=== PATIENT | female | born 1960 | race Caucasian/White ===

== ENCOUNTER 2017-12-07 19:48 | Emergency (ER) | payer MEDICAID ==
[2017-12-07 20:05] VITALS: PULSE 70; O2SAT 98
[2017-12-07 21:55] LABS: BASO % 0.7 % (0.0-2.0); EOS # 0.1 K/uL (0.0-0.7); EOS % 1.3 % (0.0-4.0); HEMOGLOBIN 11.8 g/dL (11.0-16.0); LYMPH # 2.5 K/uL (1.0-4.3); MEAN CORPUSCULAR HEMOGLOBIN 28.1 pg (27.0-31.0); MEAN CORPUSCULAR HGB CONC 33.4 g/dL (33.0-37.0); MEAN PLATELET VOLUME 9.9 fL (7.2-11.7); MONO # 0.5 K/uL (0.0-0.8); MONO % 7.6 % (0.0-10.0); NEUT # 2.9 K/uL (1.8-7.0); NEUT % 48.4 % (50.0-75.0); NRBC % 0.1 % (0.0-2.0); RBC 4.2 Mil/uL (3.80-5.20)
[2017-12-07 22:08] LABS: ALB/GLOB RATIO 1.2 (1.0-2.1); ALBUMIN 3.9 g/dL (3.5-5.0); ALT/SGPT 30 U/L (9-52); AST/SGOT 41 U/L (14-36); BLOOD UREA NITROGEN 14 mg/dL (7-17); CALCIUM 8.6 mg/dl (8.6-10.4); GFR AFRICAN-AMERICAN > 60; GFR NON-AFRICAN AMERICAN 57
[2017-12-07 22:19] LABS: B-TYPE NATRIURETIC PEPTIDE 217 pg/mL (0-900)
[2017-12-07] MEDS ORDERED: Alum-Mag Hydrox-Simethicone Susp (30 mL) PO STA (22:26)
[2017-12-07] MEDS ORDERED: Alum-Mag Hydrox-Simethicone Susp (30 mL) ONE (22:45)
--- NOTE | 2017-12-07 23:24 | C.PDOC ---
Time Seen by Provider: 12/07/17 20:54 Chief Complaint (Nursing): GI Problem History Per: Patient, Family Onset/Duration Of Symptoms: Days (1) Current Symptoms Are (Timing): Still Present Severity: Moderate Radiation Of Pain To:: Chest Quality Of Discomfort: Burning Associated Symptoms: Nausea, Vomiting Alleviating Factors: None Additional History Per: Prior Records Past Medical History Reviewed: Historical Data, Nursing Documentation, Vital Signs Vital Signs: Last Vital Signs Temp 98.0 F 12/07/17 19:56 Pulse 70 12/07/17 19:56 Resp 11 L 12/07/17 19:56 BP 150/94 H 12/07/17 19:56 Pulse Ox 98 12/07/17 19:56 - Medical History PMH: Arthritis, Asthma, Gastritis, Hypercholesterolemia Surgical History: Appendectomy Family History: States: Unknown Family Hx - Social History Hx Tobacco Use: No Hx Alcohol Use: No Hx Substance Use: No - Immunization History Hx Tetanus Toxoid Vaccination: No Hx Influenza Vaccination: Yes Hx Pneumococcal Vaccination: No Review Of Systems Except As Marked, All Systems Reviewed And Found Negative. Constitutional: Negative for: Fever Respiratory: Negative for: Hemoptysis Gastrointestinal: Positive for: Nausea, Vomiting. Negative for: Abdominal Pain , Diarrhea, Constipation, Melena, Hematochezia, Hematemesis Genitourinary: Negative for: Dysuria Musculoskeletal: Negative for: Neck Pain, Back Pain Skin: Negative for: Rash Neurological: Negative for: Weakness, Numbness Physical Exam - Physical Exam Appears: Non-toxic, No Acute Distress Skin: Normal Color, Warm, Dry, No Rash Head: Atraumatic, Normacephalic Eye(s): bilateral: Normal Inspection, PERRL, EOMI Neck: Normal ROM, Supple Cardiovascular: Rhythm Regular Respiratory: Normal Breath Sounds, No Accessory Muscle Use Gastrointestinal/Abdominal: Soft, No Tenderness, No Distention Back: No CVA Tenderness Extremity: Normal ROM, No Pedal Edema, No Calf Tenderness Neurological/Psych: Oriented x3, Normal Motor, Normal Sensation ED Course And Treatment - Laboratory Results Result Diagrams: 12/07/17 21:49 12/07/17 21:49 Lab Interpretation: No Acute Changes ECG: Interpreted By Me, Viewed By Me ECG Rhythm: Sinus Rhythm ECG Interpretation: No Acute Changes Rate From EC O2 Sat by Pulse Oximetry: 98 Pulse Ox Interpretation: Normal - Radiology CXR: Interpreted by Me, Viewed By Me CXR Interpretation: Yes: No Acute Disease Progress - Interventions Interventions:: Observation, Intravenous fluid - Medications Administered Oral: Antacid, Antiemetic Intravenous: Antiemetic, H-2 adama - Data Reviewed Data Reviewed: Lab, Diagnostic imaging, EKG, Old records - Patient Status Patient status: Mostly improved - Continuity of Care Discussed patient case with:: Patient, Family-HIPPA compliant, ED Nurse - Patient Plan Patient Plan: Discharge, F/U with PCP Disposition Counseled Patient/Family Regarding: Studies Performed, Diagnosis, Need For Followup, Rx Given - Disposition Referrals: Eliazar Whitfield MD [Medical Doctor] - Disposition: HOME/ ROUTINE Disposition Time: 23:25 Condition: IMPROVED Additional Instructions: Follow up with your doctor within 1 week for further evaluation and treatment. Return to the ER if you develop fever, abdominal pain, shortness of breath, worsening of symptoms or if you have an other concerns. Prescriptions: Famotidine [Pepcid] 20 mg PO BID #30 tab Metoclopramide [Reglan] 1 tab PO TID PRN #15 tab PRN Reason: Nausea/Vomiting Instructions: Acute Nausea and Vomiting (ED) Forms: [employer] (Irish) Print Language: SAMMARINESE - Clinical Impression Clinical Impression: Nausea & vomiting, Chest discomfort
[2017-12-07 23:34] VITALS: BP 150/92; RESP 18; TEMP 97.8
--- NOTE | 2017-12-08 16:08 | RAD ---
HISTORY: Vomiting. Chest discomfort. COMPARISON: 06/07/2016 FINDINGS: LUNGS: No active pulmonary disease. PLEURA: No significant pleural effusion identified, no pneumothorax apparent. CARDIOVASCULAR: Normal. OSSEOUS STRUCTURES: No significant abnormalities. VISUALIZED UPPER ABDOMEN: Normal. OTHER FINDINGS: None. IMPRESSION: No active disease.
== END 2017-12-07 23:36 | disposition home or self-care (01) ==
LOC: C.ER 19:48
DX: R11.2 Nausea with vomiting, unspecified (principal); R07.89 Other chest pain
CPT/HCPCS: 71045; 80053; 83880; 84484; 85025; 87804; 96374; 96375; 99283; J2405

== ENCOUNTER 2018-12-22 16:27 | Observation (INO) | payer MEDICAID ==
[2018-12-22] MEDS ORDERED: Iodixanol 320 MG/ML 100 ML BOTTLE IV ONE (16:51)
[2018-12-22] MEDS ORDERED: Sodium Chloride 0.9% 500 ML IV STA (17:40)
--- NOTE | 2018-12-22 17:43 | C.PDOC ---
History Of Present Illness 58 year old female with PMHx of HTN, HLD, and arthritis presents to the ED complaining of diffused tingling sensation to feet, hands and back, headache, and chest pain. Patient reports her mother is also in the ED with code stroke. D enies any other complaints. Denies any SOB, fever, chills, n/v/d, or any other complaints. Time Seen by Provider: 12/22/18 16:34 Chief Complaint (Nursing): Anxiety History Per: Patient History/Exam Limitations: no limitations Onset/Duration Of Symptoms: Hrs Current Symptoms Are (Timing): Still Present Suicide/Self Injury Attempted (Context): None Modifying Factor(s): None Past Medical History Reviewed: Historical Data, Nursing Documentation, Vital Signs Vital Signs: Last Vital Signs Temp 98.7 F 12/22/18 16:30 Pulse 92 H 12/22/18 16:30 Resp 28 H 12/22/18 16:30 BP 131/61 12/22/18 16:30 Pulse Ox 100 12/22/18 16:30 - Medical History PMH: Arthritis, Asthma, Gastritis, Hypercholesterolemia Surgical History: Appendectomy Family History: States: Stroke (Mother at 89 y/o ) - Social History Hx Tobacco Use: No Hx Alcohol Use: No Hx Substance Use: No - Immunization History Hx Tetanus Toxoid Vaccination: No Hx Influenza Vaccination: Yes Hx Pneumococcal Vaccination: No Review Of Systems Except As Marked, All Systems Reviewed And Found Negative. Constitutional: Negative for: Fever, Chills Cardiovascular: Positive for: Chest Pain Respiratory: Negative for: Shortness of Breath, SOB with Excertion, Wheezing Gastrointestinal: Negative for: Nausea, Vomiting, Diarrhea Neurological: Positive for: Headache, Other (diffuse tingling sensation ) Physical Exam - Physical Exam Appears: Non-toxic, No Acute Distress, Other (anxious, holding chest) Skin: Warm, Dry Head: Normacephalic Eye(s): bilateral: Normal Inspection Nose: Normal Oral Mucosa: Moist Neck: Supple Chest: Symmetrical Cardiovascular: Rhythm Regular Respiratory: Normal Breath Sounds, No Rales, No Rhonchi, No Wheezing Neurological/Psych: Oriented x3, Normal Speech Gait: Steady ED Course And Treatment - Laboratory Results Result Diagrams: 12/22/18 18:04 12/22/18 18:04 O2 Sat by Pulse Oximetry: 100 (RA) Pulse Ox Interpretation: Normal - Other Rad CXR X-Ray: Viewed By Me, Read By Radiologist Interpretation: Accession No. : [id number]. Patient Name / ID : [id number] STAHL / [id number]. Exam Date : 12/22/2018 17:46:26 ( Approved ). Study Comment : Sex / Age : F / [id number]. Creator : Al Villanueva MD. Dictator : Al Villanueva MD. Act Tutor : Environmental Designer : Al Villanueva MD. Approver2 : Report Date : 12/22/2018 18:15:27. My Comment : . Date of service: 12/22/2018. HISTORY: cp. COMPARISON: None available. FINDINGS: LUNGS: No active pulmonary disease. PLEURA: No significant pleural effusion identified, no pneumothorax apparent. CARDIOVASCULAR: No aortic atherosclerotic calcification present. Mild cardiomegaly not excluded. No pulmonary vascular congestion. OSSEOUS STRUCTURES: No significant abnormalities. VISUALIZED UPPER ABDOMEN: Normal. OTHER FINDINGS: None. IMPRESSION: No acute pulmonary disease bilaterally. Mild cardiomegaly not excluded. No pulmonary vascular congestion. Progress Note: EKG ordered. Blood and urine collected and sent to the lab for analysis. Patient treated iw Aspirin 325mg PO, Xanax 0.25mg PO, and IV fluids. CXR ordered. Disposition - Disposition Disposition: HOSPITALIZED Disposition Time: 19:01 Condition: FAIR Forms: [facility] (Thai) - Clinical Impression Clinical Impression: Chest pain - PA / OPTOELECTRONIC TECHNICIAN / Resident Statement MD/DO has reviewed & agrees with the documentation as recorded. - Scribe Statement The provider has reviewed the documentation as recorded by the Scribe Sarika Flores All medical record entries made by the Scribe were at my direction and personally dictated by me. I have reviewed the chart and agree that the record accurately reflects my personal performance of the history, physical exam, medical decision making, and the department course for this patient. I have also personally directed, reviewed, and agree with the discharge instructions and disposition. Physician Patient Turnover Patient Signed Over To: Al Mojica DO Handoff Comments: keep obs to tele
[2018-12-22] MEDS ORDERED: Aspirin 325 mg EC Tablets PO ONE (17:57)
[2018-12-22 18:07] LABS: BASO # 0.1 K/uL (0.0-0.2); BASO % 0.7 % (0.0-2.0); EOS % 0.2 % (0.0-4.0); HEMOGLOBIN 13.1 g/dL (11.0-16.0); LYMPH # 1.9 K/uL (1.0-4.3); LYMPH % 20.5 % (20.0-40.0); MEAN CELL VOLUME 85.9 fL (81.0-99.0); MEAN CORPUSCULAR HEMOGLOBIN 28.2 pg (27.0-31.0); MEAN CORPUSCULAR HGB CONC 32.9 g/dL (33.0-37.0); MEAN PLATELET VOLUME 9.1 fL (7.2-11.7); MONO # 0.7 K/uL (0.0-0.8); MONO % 7.7 % (0.0-10.0); NEUT # 6.4 K/uL (1.8-7.0); NEUT % 70.9 % (50.0-75.0); RBC 4.64 Mil/uL (3.80-5.20); RED CELL DISTRIBUTION WIDTH 14.4 % (11.5-14.5); WHITE BLOOD COUNT 9.1 K/uL (4.8-10.8)
[2018-12-22 18:19] LABS: PROTHROMBIN TIME 10.5 SECONDS (9.7-12.2)
--- NOTE | 2018-12-22 18:19 | RAD ---
Date of service: 12/22/2018 HISTORY: cp COMPARISON: None available. FINDINGS: LUNGS: No active pulmonary disease. PLEURA: No significant pleural effusion identified, no pneumothorax apparent. CARDIOVASCULAR: No aortic atherosclerotic calcification present. Mild cardiomegaly not excluded. No pulmonary vascular congestion. OSSEOUS STRUCTURES: No significant abnormalities. VISUALIZED UPPER ABDOMEN: Normal. OTHER FINDINGS: None. IMPRESSION: No acute pulmonary disease bilaterally. Mild cardiomegaly not excluded. No pulmonary vascular congestion.
[2018-12-22 18:47] LABS: ALB/GLOB RATIO 1.5 (1.0-2.1); ALT/SGPT 16 U/L (9-52); AST/SGOT 44 U/L (14-36); BLOOD UREA NITROGEN 17 mg/dL (7-17); CALCIUM 9.7 mg/dl (8.6-10.4); CK-MB 1.34 ng/mL (0.0-3.38); GFR NON-AFRICAN AMERICAN 51
--- NOTE | 2018-12-22 19:53 | CP.PCM.HP ---
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 Pt is a poor historian. Patient reports symptoms started after she found her mother on the floor after suffering a stroke. Pt describes the chest pain as constant, midsternal, nonradiating, aching/numbness which resolved after receiving xanax in the ED. Currently pt endorses feeling some discomfort in the midsternum only, all other symptoms have resolved. Pt had 1 episode of nausea with nonbloody nonbilious vomiting in the ED after being given ASA 325 mg PO. Denies fever, chills, vision changes, diarrhea, abdominal pain, hematochezia, melena, lightheadedness, dizziness, recent illness, recent travel, recent car rides greater than 4 hours. PMD: Eliazar Whitfield Cardio: Janel PMH: HTN, hypercholesteolemia, gastritis, arthritis PSH: appendectomy, hernia repair over 10 years ago Meds: Losartan/HCTZ 50/12.5 mg PO daily, unknown cholesterol medications, omeprazole of unknown dose, omega-3 Allx: Aspirin (nausea and vomiting) FHx: Mother suffered stroke today at age 89 (HTN, CAD), father with hx of HTN, CHF SHx: Quit smoking 8 years ago (20 pack year history), drinks 3-4 12 ounce beers on the weekend only, denies drug use Present on Admission - Present on Admission Any Indicators Present on Admission: No Review of Systems - Review of Systems Review of Systems: as per HPI - Neurological Neurological: Numbness (with tingling in distal fingers/toe intermittent for the past few weeks) Past Patient History - Infectious Disease Hx of Infectious Diseases: None - Past Social History Smoking Status: Never Smoked - CARDIAC Hx Hypercholesterolemia: Yes - PULMONARY Hx Asthma: Yes - MUSCULOSKELETAL/RHEUMATOLOGICAL Hx Arthritis: Yes - GASTROINTESTINAL Hx Gastritis: Yes - PSYCHIATRIC Hx Substance Use: No - SURGICAL HISTORY Hx Appendectomy: Yes - ANESTHESIA Hx Anesthesia: Yes Hx Anesthesia Reactions: No Meds Allergies/Adverse Reactions: Allergies Allergy/AdvReac Type Severity Reaction Status Date / Time aspirin AdvReac Verified 12/22/18 16:32 Physical Exam - Constitutional Appears: Non-toxic, No Acute Distress - Head Exam Head Exam: ATRAUMATIC, NORMAL INSPECTION - Eye Exam Eye Exam: EOMI, PERRL - ENT Exam ENT Exam: Mucous Membranes Moist - Neck Exam Neck exam: Positive for: Normal Inspection - Respiratory Exam Respiratory Exam: Clear to Auscultation Bilateral, NORMAL BREATHING PATTERN. absent: Decreased Breath Sounds, Rales, Rhonchi, Wheezes, Respiratory Distress - Cardiovascular Exam Cardiovascular Exam: REGULAR RHYTHM, +S1, +S2, Systolic Murmur (1/6 systolic ejection murmur radiating to the carotids) - GI/Abdominal Exam GI & Abdominal Exam: Normal Bowel Sounds, Soft (obese), Tenderness (mild epigastric tenderness on palpation). absent: Distended, Guarding, Hernia, Rebound, Rigid - Extremities Exam Extremities exam: Positive for: normal capillary refill, normal inspection, pedal pulses present. Negative for: calf tenderness, pedal edema, tenderness - Back Exam Back exam: NORMAL INSPECTION - Neurological Exam Neurological exam: Alert, Oriented x3 - Psychiatric Exam Psychiatric exam: Normal Affect, Normal Mood - Skin Skin Exam: Dry, Normal Color, Warm Results - Vital Signs Recent Vital Signs: Last Vital Signs Temp 98.8 F 12/22/18 18:30 Pulse 92 H 12/22/18 16:30 Resp 15 12/22/18 18:13 BP 137/82 12/22/18 18:13 Pulse Ox 100 12/22/18 19:02 - Labs Result Diagrams: 12/22/18 18:04 12/22/18 18:04 Labs: Laboratory Results - last 24 hr 12/22/18 12/22/18 12/22/18 18:04 18:04 18:04 WBC 9.1 D RBC 4.64 Hgb 13.1 Hct 39.8 MCV 85.9 MCH 28.2 MCHC 32.9 L RDW 14.4 Plt Count 231 MPV 9.1 Neut % (Auto) 70.9 Lymph % (Auto) 20.5 Cross % (Auto) 7.7 Eos % (Auto) 0.2 Baso % (Auto) 0.7 Neut # (Auto) 6.4 Lymph # (Auto) 1.9 Cross # (Auto) 0.7 Eos # (Auto) 0.0 Baso # (Auto) 0.1 PT 10.5 INR 1.0 APTT 33 Sodium 138 Potassium 4.1 Chloride 99 Carbon Dioxide 28 Anion Gap 14 BUN 17 Creatinine 1.1 Est GFR ( Amer) > 60 Est GFR (Non-Af Amer) 51 Random Glucose 101 Calcium 9.7 Magnesium 2.0 Total Bilirubin 0.6 AST 44 H ALT 16 Alkaline Phosphatase 92 Total Creatine Kinase 229 H CK-MB (Mass) 1.34 Troponin I 0.0200 Total Protein 8.3 Albumin 5.0 D Globulin 3.4 Albumin/Globulin Ratio 1.5 Assessment & Plan - Assessment and Plan (Free Text) Assessment: This is a 58 year old female with PMH of HTN, hypercholesteolemia, gastritis, arthritis who presents with chest pain, with palpitations and headache, which started after finding her mother on the floor. Plan: Chest pain r/o ACS, possibly secondary to anxiety Pt received ASA 325 mg PO in the ED CXR shows no acute cardiopulmonary pathology, mild cardiomegaly; as read by radiologist. Troponin is 0.02, EKG shows sinus tachycardia; will trend q6h x 2 Anxiety, likely precipitated by mother having stroke Xanax 0.25 mg PO q6h PRN Consider psychiatry consult if symptoms worsen Hx of HTN Will restart home meds Losartan 50 mg PO QD, HCTZ 12.5 mg PO QD Hx of Hypercholesterolemia F/u lipid panel, HgbA1c Hx of gastritis Zofran 4 mg IVP q6h prn nausea/vomiting Continue home pepcid 20 mg PO BID GI ppx: pepcid 20 mg PO BID VTE ppx: SCDs, out of bed to chair Dispo: Telemetry observation Case was reviewed and discussed with attending physician, Dr. Eva Mcpherson PGY1 <Rohit Velasquez - Last Filed: 12/23/18 06:25> Results - Vital Signs Recent Vital Signs: Last Vital Signs Temp 98.3 F 12/22/18 21:45 Pulse 52 L 12/23/18 05:48 Resp 18 12/23/18 05:48 BP 112/62 12/23/18 05:48 Pulse Ox 100 12/23/18 05:48 - Labs Result Diagrams: 12/22/18 18:04 02/03/19 18:04 Labs: Laboratory Results - last 24 hr 12/22/18 12/22/18 12/22/18 18:04 18:04 18:04 WBC 9.1 D RBC 4.64 Hgb 13.1 Hct 39.8 MCV 85.9 MCH 28.2 MCHC 32.9 L RDW 14.4 Plt Count 231 MPV 9.1 Neut % (Auto) 70.9 Lymph % (Auto) 20.5 Cross % (Auto) 7.7 Eos % (Auto) 0.2 Baso % (Auto) 0.7 Neut # (Auto) 6.4 Lymph # (Auto) 1.9 Cross # (Auto) 0.7 Eos # (Auto) 0.0 Baso # (Auto) 0.1 PT 10.5 INR 1.0 APTT 33 Sodium 138 Potassium 4.1 Chloride 99 Carbon Dioxide 28 Anion Gap 14 BUN 17 Creatinine 1.1 Est GFR ( Amer) > 60 Est GFR (Non-Af Amer) 51 Random Glucose 101 Calcium 9.7 Magnesium 2.0 Total Bilirubin 0.6 AST 44 H ALT 16 Alkaline Phosphatase 92 Total Creatine Kinase 229 H CK-MB (Mass) 1.34 Troponin I 0.0200 Total Protein 8.3 Albumin 5.0 D Globulin 3.4 Albumin/Globulin Ratio 1.5 Urine Color Urine Clarity Urine pH Ur Specific Arthur Urine Protein Urine Glucose (UA) Urine Ketones Urine Blood Urine Nitrate Urine Bilirubin Urine Urobilinogen Ur Leukocyte Esterase Urine WBC (Auto) Urine RBC (Auto) Ur Squamous Epith Cells 12/22/18 12/23/18 19:41 00:40 WBC RBC Hgb Hct MCV MCH MCHC RDW Plt Count MPV Neut % (Auto) Lymph % (Auto) Cross % (Auto) Eos % (Auto) Baso % (Auto) Neut # (Auto) Lymph # (Auto) Cross # (Auto) Eos # (Auto) Baso # (Auto) PT INR APTT Sodium Potassium Chloride Carbon Dioxide Anion Gap BUN Creatinine Est GFR ( Amer) Est GFR (Non-Af Amer) Random Glucose Calcium Magnesium Total Bilirubin AST ALT Alkaline Phosphatase Total Creatine Kinase 153 H CK-MB (Mass) 0.96 Troponin I 0.0210 Total Protein Albumin Globulin Albumin/Globulin Ratio Urine Color Colorless Urine Clarity Clear Urine pH 6.0 Ur Specific Arthur 1.002 L Urine Protein Negative Urine Glucose (UA) Normal Urine Ketones Negative Urine Blood Negative Urine Nitrate Negative Urine Bilirubin Negative Urine Urobilinogen Normal Ur Leukocyte Esterase Neg Urine WBC (Auto) < 1 Urine RBC (Auto) < 1 Ur Squamous Epith Cells < 1 Assessment & Plan - Date & Time Date: 12/23/18 (I have seen and examined the patient. I agree with the findings and plan of care as documented by Dr. Mcpherson. Patient with chest pain. ROMIx3 with EKG. 2D Echo. Allergic to aspirin. Statin. Also with anxiety secondary to mother in hospital. Xanax as needed. History of hypertension. Continue home meds. Monitor for acute changes.) Time: 06:24 Attending/Attestation - Attestation I have personally seen and examined this patient.: Yes I have fully participated in the care of the patient.: Yes I have reviewed all pertinent clinical information: Yes
[2018-12-22 19:54] LABS: SQUAMOUS EPITHIAL < 1 /hpf (0-5); URINE BILIRUBIN NEGATIVE (NEGATIVE); URINE BLOOD NEGATIVE (NEGATIVE); URINE CLARITY Clear (Clear); URINE COLOR Colorless (YELLOW); URINE GLUCOSE (UA) NORMAL (Normal); URINE LEUKOCYTE ESTERASE NEG Leu/uL (Negative); URINE PROTEIN NEGATIVE (NEGATIVE); URINE UROBILINOGEN NORMAL mg/dL (0.2-1.0)
[2018-12-23 01:04] LABS: CK-MB 0.96 ng/mL (0.0-3.38)
[2018-12-23 01:08] LABS: TROPONIN I 0.021 ng/mL (0.00-0.120)
[2018-12-23 06:34] LABS: BASO % 0.4 % (0.0-2.0); EOS % 0.8 % (0.0-4.0); HEMOGLOBIN 11.4 g/dL (11.0-16.0); LYMPH # 2.3 K/uL (1.0-4.3); LYMPH % 36.2 % (20.0-40.0); MEAN CORPUSCULAR HEMOGLOBIN 28.6 pg (27.0-31.0); MEAN CORPUSCULAR HGB CONC 33.6 g/dL (33.0-37.0); MEAN PLATELET VOLUME 9.4 fL (7.2-11.7); MONO # 0.7 K/uL (0.0-0.8); MONO % 10.4 % (0.0-10.0); NEUT # 3.4 K/uL (1.8-7.0); NEUT % 52.2 % (50.0-75.0); RBC 3.99 Mil/uL (3.80-5.20); RED CELL DISTRIBUTION WIDTH 14.2 % (11.5-14.5); WHITE BLOOD COUNT 6.4 K/uL (4.8-10.8)
[2018-12-23 06:50] LABS: ALB/GLOB RATIO 1.3 (1.0-2.1); ALBUMIN 3.9 g/dL (3.5-5.0); ALT/SGPT 18 U/L (9-52); AST/SGOT 32 U/L (14-36); BLOOD UREA NITROGEN 15 mg/dL (7-17); CALCIUM 8.8 mg/dl (8.6-10.4); GFR NON-AFRICAN AMERICAN 51; HDL CHOLESTEROL 60 mg/dL (30-70)
[2018-12-23 07:00] LABS: CK-MB 0.75 ng/mL (0.0-3.38); LDL CHOLESTEROL 116 mg/dL (0-129)
[2018-12-23 08:48] VITALS: RESP 20
[2018-12-23] MEDS ORDERED: Enoxaparin 40 mg Syringe SC SCH (10:00)
--- NOTE | 2018-12-23 12:53 | CP.PCM.DIS ---
<Louise Alanis - Last Filed: 12/23/18 14:49> Provider - Provider Date of Admission: 12/22/18 19:49 Attending physician: Rohit Velasquez MD Primary care physician: Dr. Penny Time Spent in preparation of Discharge (in minutes): 30 Diagnosis - Discharge Diagnosis (1) Anxiety as acute reaction to exceptional stress Status: Acute Hospital Course - Lab Results Lab Results: Most Recent Lab Values WBC 6.4 K/uL (4.8-10.8) 12/23/18 06:28 RBC 3.99 Mil/uL (3.80-5.20) 12/23/18 06:28 Hgb 11.4 g/dL (11.0-16.0) 12/23/18 06:28 Hct 33.9 % (34.0-47.0) L 12/23/18 06:28 MCV 85.0 fL (81.0-99.0) 12/23/18 06:28 MCH 28.6 pg (27.0-31.0) 12/23/18 06:28 MCHC 33.6 g/dL (33.0-37.0) 12/23/18 06:28 RDW 14.2 % (11.5-14.5) 12/23/18 06:28 Plt Count 221 K/uL (130-400) 12/23/18 06:28 MPV 9.4 fL (7.2-11.7) 12/23/18 06:28 Neut % (Auto) 52.2 % (50.0-75.0) 12/23/18 06:28 Lymph % (Auto) 36.2 % (20.0-40.0) 12/23/18 06:28 [place] % (Auto) 10.4 % (0.0-10.0) H 12/23/18 06:28 Eos % (Auto) 0.8 % (0.0-4.0) 12/23/18 06:28 Baso % (Auto) 0.4 % (0.0-2.0) 12/23/18 06:28 Neut # (Auto) 3.4 K/uL (1.8-7.0) 12/23/18 06:28 Lymph # (Auto) 2.3 K/uL (1.0-4.3) 12/23/18 06:28 [place] # (Auto) 0.7 K/uL (0.0-0.8) 12/23/18 06:28 Eos # (Auto) 0.0 K/uL (0.0-0.7) 12/23/18 06:28 Baso # (Auto) 0.0 K/uL (0.0-0.2) 12/23/18 06:28 PT 10.5 SECONDS (9.7-12.2) 12/22/18 18:04 INR 1.0 12/22/18 18:04 APTT 33 SECONDS (21-34) 12/22/18 18:04 Sodium 138 mmol/L (132-148) 12/23/18 06:28 Potassium 3.8 mmol/L (3.6-5.2) 12/23/18 06:28 Chloride 102 mmol/L (98-107) 12/23/18 06:28 Carbon Dioxide 32 mmol/L (22-30) H 12/23/18 06:28 Anion Gap 8 (10-20) L 12/23/18 06:28 BUN 15 mg/dL (7-17) 12/23/18 06:28 Creatinine 1.1 mg/dL (0.7-1.2) 12/23/18 06:28 Est GFR ( Amer) > 60 12/23/18 06:28 Est GFR (Non-Af Amer) 51 12/23/18 06:28 Random Glucose 87 mg/dL (65-105) 12/23/18 06:28 Hemoglobin A1c 5.7 % (4.2-6.5) 12/23/18 06:28 Calcium 8.8 mg/dl (8.6-10.4) 12/23/18 06:28 Phosphorus 3.8 mg/dL (2.5-4.5) 12/23/18 06:28 Magnesium 2.1 mg/dL (1.6-2.3) 12/23/18 06:28 Total Bilirubin 0.6 mg/dL (0.2-1.3) 12/23/18 06:28 AST 32 U/L (14-36) 12/23/18 06:28 ALT 18 U/L (9-52) 12/23/18 06:28 Alkaline Phosphatase 70 U/L (38-126) 12/23/18 06:28 Total Creatine Kinase 170 U/L (30-135) H 12/23/18 06:28 CK-MB (Mass) 0.75 ng/mL (0.0-3.38) 12/23/18 06:28 Troponin I < 0.0120 ng/mL (0.00-0.120) 12/23/18 06:28 Total Protein 6.8 g/dL (6.3-8.3) 12/23/18 06:28 Albumin 3.9 g/dL (3.5-5.0) 12/23/18 06:28 Globulin 2.9 gm/dL (2.2-3.9) 12/23/18 06:28 Albumin/Globulin Ratio 1.3 (1.0-2.1) 12/23/18 06:28 Triglycerides 67 mg/dL (0-149) 12/23/18 06:28 Cholesterol 199 mg/dL (0-199) 12/23/18 06:28 LDL Cholesterol Direct 116 mg/dL (0-129) 12/23/18 06:28 HDL Cholesterol 60 mg/dL (30-70) 12/23/18 06:28 Urine Color Colorless (YELLOW) 12/22/18 19:41 Urine Clarity Clear (Clear) 12/22/18 19:41 Urine pH 6.0 (5.0-8.0) 12/22/18 19:41 Ur Specific [place] 1.002 (1.003-1.030) L 12/22/18 19:41 Urine Protein Negative mg/dL (NEGATIVE) 12/22/18 19:41 Urine Glucose (UA) Normal mg/dL (Normal) 12/22/18 19:41 Urine Ketones Negative mg/dL (NEGATIVE) 12/22/18 19:41 Urine Blood Negative (NEGATIVE) 12/22/18 19:41 Urine Nitrate Negative (NEGATIVE) 12/22/18 19:41 Urine Bilirubin Negative (NEGATIVE) 12/22/18 19:41 Urine Urobilinogen Normal mg/dL (0.2-1.0) 12/22/18 19:41 Ur Leukocyte Esterase Neg [place]/uL (Negative) 12/22/18 19:41 Urine WBC (Auto) < 1 /hpf (0-5) 12/22/18 19:41 Urine RBC (Auto) < 1 /hpf (0-3) 12/22/18 19:41 Ur Squamous Epith Cells < 1 /hpf (0-5) 12/22/18 19:41 - Hospital Course Hospital Course: Patient was evaluated for complaints of chest pain/discomfort, SOB. Vitals revealed pt was tachycardic at 118, normotensive, with spO2 of 100% on room air. Workup in the ED included CBC, CMP, cardiac enzymes. Pt was given ASA 325mg in the ED; of not, pt is allergic to ASA and subsequently began vomiting. Pt presented s/p finding her mother on floor from stroke, and was very emotional. Pt was given Xanax, with significant improvement in symptoms. Cardiac enzymes/EKG all negative for acute pathology. Pt was treated w/ Xanax during admission, and O2 via NC HTN controlled with home losartan/HCTZ. Pt is stable for d/c home; she was given a prescription for Xanax 0.25mg po q8 PRN #12 Instructed to return to the ED with worsening of symptoms. HPI on admission: "This is a 58 year old female with PMH of HTN, hypercholesteolemia, gastritis, arthritis who presents with chest pain, with palpitations, headache and sob. Pt is a poor historian. Patient reports symptoms started after she found her mother on the floor after suffering a stroke. Pt describes the chest pain as constant, midsternal, nonradiating, aching/numbness which resolved after receiving xanax in the ED. Currently pt endorses feeling some discomfort in the midsternum only, all other symptoms have resolved. Pt had 1 episode of nausea with nonbloody nonbilious vomiting in the ED after being given ASA 325 mg PO. Denies fever, chills, vision changes, diarrhea, abdominal pain, hematochezia, melena, lightheadedness, dizziness, recent illness, recent travel, recent car rides greater than 4 hours. " Discharge Exam - Head Exam Head Exam: ATRAUMATIC, NORMAL INSPECTION - Eye Exam Eye Exam: EOMI, Normal appearance - ENT Exam ENT Exam: Mucous Membranes Moist, Normal Exam - Neck Exam Neck exam: Normal Inspection - Respiratory Exam Respiratory Exam: Clear to PA & Lateral, NORMAL BREATHING PATTERN, UNREMARKABLE - Cardiovascular Exam Cardiovascular Exam: Bradycardia, REGULAR RHYTHM, +S1, +S2 - GI/Abdominal Exam GI & Abdominal Exam: Normal Bowel Sounds, Unremarkable - Extremities Exam Extremities exam: normal inspection - Neurological Exam Neurological exam: Alert, Normal Gait, Oriented x3 - Psychiatric Exam Psychiatric exam: Depressed - Skin Skin Exam: Dry, Intact, Normal Color, Warm Discharge Plan - Follow Up Plan Condition: FAIR Disposition: HOME/ ROUTINE Patient education suggested?: Yes Instructions: Anxiety, Adult (DC), Alprazolam, Stress Additional Instructions: Patient is stable for discharge home. Patient was evaluated for complaints of chest discomfort secondary to acute stress and anxiety. Patient is instructed to resume all home medications as prescribed my PMD. Patient will also be given a prescription to continue with Xanax during hospital stay, to help with overwhelming anxiety. Patient is instructed to follow up with PMD within 1 week of discharge to discuss further treatment of anxiety. Patient will be given a prescription to be filled by pharmacy: Xanax 0.25mg PO Q8H PRN; patient is to take 1 pill by mouth as needed every 8 hours. This medication can cause fatigue and patient is instructed to abstain from driving Patient is instructed to return to the Emergency Department with any worsening o f symptoms Referrals: at [facility] [Outside] Cesilia Winter MD [Staff Provider] - <Sanchez Torrez H - Last Filed: 12/23/18 15:37> Provider - Provider Date of Admission: 12/22/18 19:49 Attending physician: Rohit Velasquez MD Hospital Course - Lab Results Lab Results: Most Recent Lab Values WBC 6.4 K/uL (4.8-10.8) 12/23/18 06:28 RBC 3.99 Mil/uL (3.80-5.20) 12/23/18 06:28 Hgb 11.4 g/dL (11.0-16.0) 12/23/18 06:28 Hct 33.9 % (34.0-47.0) L 12/23/18 06:28 MCV 85.0 fL (81.0-99.0) 12/23/18 06:28 MCH 28.6 pg (27.0-31.0) 12/23/18 06:28 MCHC 33.6 g/dL (33.0-37.0) 12/23/18 06:28 RDW 14.2 % (11.5-14.5) 12/23/18 06:28 Plt Count 221 K/uL (130-400) 12/23/18 06:28 MPV 9.4 fL (7.2-11.7) 12/23/18 06:28 Neut % (Auto) 52.2 % (50.0-75.0) 12/23/18 06:28 Lymph % (Auto) 36.2 % (20.0-40.0) 12/23/18 06:28 [place] % (Auto) 10.4 % (0.0-10.0) H 12/23/18 06:28 Eos % (Auto) 0.8 % (0.0-4.0) 12/23/18 06:28 Baso % (Auto) 0.4 % (0.0-2.0) 12/23/18 06:28 Neut # (Auto) 3.4 K/uL (1.8-7.0) 12/23/18 06:28 Lymph # (Auto) 2.3 K/uL (1.0-4.3) 12/23/18 06:28 [place] # (Auto) 0.7 K/uL (0.0-0.8) 12/23/18 06:28 Eos # (Auto) 0.0 K/uL (0.0-0.7) 12/23/18 06:28 Baso # (Auto) 0.0 K/uL (0.0-0.2) 12/23/18 06:28 PT 10.5 SECONDS (9.7-12.2) 12/22/18 18:04 INR 1.0 12/22/18 18:04 APTT 33 SECONDS (21-34) 12/22/18 18:04 Sodium 138 mmol/L (132-148) 12/23/18 06:28 Potassium 3.8 mmol/L (3.6-5.2) 12/23/18 06:28 Chloride 102 mmol/L (98-107) 12/23/18 06:28 Carbon Dioxide 32 mmol/L (22-30) H 12/23/18 06:28 Anion Gap 8 (10-20) L 12/23/18 06:28 BUN 15 mg/dL (7-17) 12/23/18 06:28 Creatinine 1.1 mg/dL (0.7-1.2) 12/23/18 06:28 Est GFR ( Amer) > 60 12/23/18 06:28 Est GFR (Non-Af Amer) 51 12/23/18 06:28 Random Glucose 87 mg/dL (65-105) 12/23/18 06:28 Hemoglobin A1c 5.7 % (4.2-6.5) 12/23/18 06:28 Calcium 8.8 mg/dl (8.6-10.4) 12/23/18 06:28 Phosphorus 3.8 mg/dL (2.5-4.5) 12/23/18 06:28 Magnesium 2.1 mg/dL (1.6-2.3) 12/23/18 06:28 Total Bilirubin 0.6 mg/dL (0.2-1.3) 12/23/18 06:28 AST 32 U/L (14-36) 12/23/18 06:28 ALT 18 U/L (9-52) 12/23/18 06:28 Alkaline Phosphatase 70 U/L (38-126) 12/23/18 06:28 Total Creatine Kinase 170 U/L (30-135) H 12/23/18 06:28 CK-MB (Mass) 0.75 ng/mL (0.0-3.38) 12/23/18 06:28 Troponin I < 0.0120 ng/mL (0.00-0.120) 12/23/18 06:28 Total Protein 6.8 g/dL (6.3-8.3) 12/23/18 06:28 Albumin 3.9 g/dL (3.5-5.0) 12/23/18 06:28 Globulin 2.9 gm/dL (2.2-3.9) 12/23/18 06:28 Albumin/Globulin Ratio 1.3 (1.0-2.1) 12/23/18 06:28 Triglycerides 67 mg/dL (0-149) 12/23/18 06:28 Cholesterol 199 mg/dL (0-199) 12/23/18 06:28 LDL Cholesterol Direct 116 mg/dL (0-129) 12/23/18 06:28 HDL Cholesterol 60 mg/dL (30-70) 12/23/18 06:28 Urine Color Colorless (YELLOW) 12/22/18 19:41 Urine Clarity Clear (Clear) 12/22/18 19:41 Urine pH 6.0 (5.0-8.0) 12/22/18 19:41 Ur Specific [place] 1.002 (1.003-1.030) L 12/22/18 19:41 Urine Protein Negative mg/dL (NEGATIVE) 12/22/18 19:41 Urine Glucose (UA) Normal mg/dL (Normal) 12/22/18 19:41 Urine Ketones Negative mg/dL (NEGATIVE) 12/22/18 19:41 Urine Blood Negative (NEGATIVE) 12/22/18 19:41 Urine Nitrate Negative (NEGATIVE) 12/22/18 19:41 Urine Bilirubin Negative (NEGATIVE) 12/22/18 19:41 Urine Urobilinogen Normal mg/dL (0.2-1.0) 12/22/18 19:41 Ur Leukocyte Esterase Neg [place]/uL (Negative) 12/22/18 19:41 Urine WBC (Auto) < 1 /hpf (0-5) 12/22/18 19:41 Urine RBC (Auto) < 1 /hpf (0-3) 12/22/18 19:41 Ur Squamous Epith Cells < 1 /hpf (0-5) 12/22/18 19:41 Attending/Attestation - Attestation I have personally seen and examined this patient.: Yes I have fully participated in the care of the patient.: Yes I have reviewed all pertinent clinical information, including history, physical exam and plan: Yes Notes (Text): 12/23/18 15:35 Medical attending: Patient was seen and examined by me. Agree with the above note by the resident The patient was not in any acute distress when we came and saw - as mentioned previously she is the family member of another patient in the hospital whom had a large CVA. Mrs Cnuningham has been in a lot of stress recently, the EKG and cardiac enzymes reviewed and were stable We will discharge patient - also an RX for a brief duration of Xanax as well as this was given to her overnight and it reportedly helped her signifigantly Sanchez Torrez
[2018-12-23 16:08] VITALS: BP 108/77; PULSE 82; TEMP 97.9; O2SAT 95
--- NOTE | 2018-12-24 09:52 | CARD ---
APPROVED REPORT Date of service: 12/22/2018 EKG Measurement Heart [id number] <Conclusion> Normal sinus rhythm Normal ECG
--- NOTE | 2018-12-25 14:47 | CARD ---
APPROVED REPORT Date of service: 12/23/2018 EKG Measurement Heart [id number] <Conclusion> Sinus bradycardia Otherwise normal ECG
--- NOTE | 2018-12-25 14:47 | CARD ---
APPROVED REPORT Date of service: 12/23/2018 EKG Measurement Heart [id number] <Conclusion> Sinus bradycardia Otherwise normal ECG
== END 2018-12-23 16:09 | disposition home or self-care (01) ==
LOC: C.ER 16:27 → C.9E 19:49 → C.5S 12-23 07:06
PROVIDERS: ADMIT Family Medicine; ATTEND Family Medicine
DX: F41.1 Generalized anxiety disorder (principal); F43.0 Acute stress reaction; I10 Essential (primary) hypertension; R07.89 Other chest pain; R20.2 Paresthesia of skin; E78.5 Hyperlipidemia, unspecified; E78.00 Pure hypercholesterolemia, unspecified; J45.909 Unspecified asthma, uncomplicated; Z87.891 Personal history of nicotine dependence; Z88.6 Allergy status to analgesic agent; Z90.49 Acquired absence of other specified parts of digestive tract; Z82.3 Family history of stroke; Z82.49 Family history of ischemic heart disease and other diseases of the circulatory system
CPT/HCPCS: 71045; 80053; 80061; 81001; 82550; 82553; 83036; 83735; 84100; 84484; 85025; 85610; 85730; 92610; 93005; 96374; 99285; G0378; G8996; G8997; G8998; J1650; J2405; J7040; Q9967